=== PATIENT | male | born 1965 | race Caucasian/White ===

== ENCOUNTER 2018-02-05 15:48 | Emergency (ER) | payer OTHER ==
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
[2018-02-05] MEDS ORDERED: ONDANSETRON 4 MG/2 ML VIAL IVP ONE (15:55)
[2018-02-05] MEDS ORDERED: fentaNYL CITR 100 MCG/2 ML AMP IVP ONE ×3 (15:55→19:30)
[2018-02-05] MEDS ORDERED: NS(*) 0.9% 1000 ML BAG 1,000 ML IV ONE (15:55)
[2018-02-05] MEDS ORDERED: IOPAMIDOL 76% 100 ML INFUS BTL 100 ML ONE (16:16)
[2018-02-05] MEDS ORDERED: NS 0.9% 150 ML BAG 150 ML ONE (16:16)
[2018-02-05 16:18] LABS: PLATELET COUNT, AUTOMATED 194 K/uL (150-450)
[2018-02-05] MEDS ORDERED: fentaNYL CITR 100 MCG/2 ML AMP ONE (16:20)
[2018-02-05] MEDS ORDERED: ONDANSETRON 4 MG/2 ML VIAL ONE (16:20)
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
[2018-02-05] MEDS ORDERED: DIPHTH/TETANUS/ACEL. PERTUSSIS IM ONLY ONE (17:50)
[2018-02-05] MEDS ORDERED: HYDR-4309 PO (19:32)
[2018-02-05] MEDS ORDERED: ACET/HYDROC 5/325MG TH ER ONLY 2 TAB/BOTTLE PO ONE (19:55)
[2018-02-05 20:36] VITALS: BP 126/83
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
== END 2018-02-05 20:35 | disposition home or self-care (01) ==
LOC: ER 16:01
DX: S60.222A Contusion of left hand, initial encounter (principal); S40.012A Contusion of left shoulder, initial encounter; S70.02XA Contusion of left hip, initial encounter; N20.0 Calculus of kidney; V64.5XXA Driver of heavy transport vehicle injured in collision with heavy transport vehicle or bus in traffic accident, initial encounter
CPT/HCPCS: 70450; 71260; 72125; 73130; 74177; 80305; 81001; 82150; 83605; 83690; 84484; 85025; 90715; 93005; 99284; J2405; J3010; J7030; Q9967; 82040; 82247; 82310; 82374; 82435; 82565; 82947; 84075; 84132; 84155; 84295; 84450; 84460; 84520

== ENCOUNTER → 2018-02-05 | Outpatient (CLI) | payer OTHER ==
[~2018-02-05] MED LIST: HYDR-4309 PO
== END ==
LOC: AMB 14:58
PROVIDERS: ATTEND Nurse Practitioner
DX: M54.2 Cervicalgia (principal); R11.0 Nausea; M25.551 Pain in right hip; M25.532 Pain in left wrist; R42 Dizziness and giddiness; V69.9XXA Occupant (driver) (passenger) of heavy transport vehicle injured in unspecified traffic accident, initial encounter; Y92.411 Interstate highway as the place of occurrence of the external cause
CPT/HCPCS: A0425; A0427